=== PATIENT | female | born 1960 | race Caucasian/White ===

== ENCOUNTER 2017-04-25 08:05 | Emergency (ER) | payer OTHER ==
[~2017-04-25] VITALS: Ht 167.3 cm; Wt 62.1 kg
[~2017-04-25 08:05] MED LIST: CIPRO500 MG PO; CIPROFLOXACIN500 MG PO; MULTI VITAMINS1 TAB PO; PREDNICOT10 MG PO
== END 2017-04-25 11:20 | disposition home or self-care (01) ==
LOC: ED 08:05
DX: S62.644A Nondisplaced fracture of proximal phalanx of right ring finger, initial encounter for closed fracture (principal); Z88.0 Allergy status to penicillin; Z88.2 Allergy status to sulfonamides; W22.8XXA Striking against or struck by other objects, initial encounter; Y93.89 Activity, other specified; Y92.89 Other specified places as the place of occurrence of the external cause; Y99.8 Other external cause status

== ENCOUNTER → 2018-01-16 | Day surgery (SDC) | payer OTHER ==
[~2018-01-16] MED LIST changes: +ASPIRIN CHEWABL81 MG PO; +CAL-MAG TABLET1 EACH PO; +MULTIPLE VITAM1 EAC1 PO; +VITAMIN D-32000 UNI1 PO
--- NOTE | ~2018-01-16 | PROC NOTE ---
[place], [place] PROCEDURE NOTE NAME: SUMIT AMANDA UNIT #: [id number] ROOM: DOCTOR: FRANCESCO QUEZADA MD BIRTHDATE: [birth year] DOS: 01/16/2018 PREOPERATIVE DIAGNOSIS: Screening examination. POSTOPERATIVE DIAGNOSIS: Normal colon. PROCEDURE: Colonoscopy. ENDOSCOPIST: Francesco Quezada MD BARBER SHOP OPERATOR: LEO. ANESTHESIA: MAC. INDICATIONS: This is a 57-year-old lady who is here for a screening examination. The procedure and its complications were explained to the patient in detail preoperatively. Complications that were discussed included, but were not limited to, bleeding, colon perforation, missed lesions and prolonged pain. She agreed to proceed. DESCRIPTION OF PROCEDURE: After identifying the patient, the patient was brought to the endoscopy suite and placed in the left lateral position. After IV sedation was administered, a timeout procedure was called and a digital rectal exam was performed. This was within normal limits. An adult colonoscope was now introduced into the anal canal and advanced sequentially into the rectum, sigmoid colon, descending colon, transverse colon, ascending colon up to the cecum. Upon reaching the cecum, the scope was withdrawn. Total withdrawal time was approximately 7 minutes. There were no obvious lesions seen in the entirety of the colon. Upon removal of the colonoscope, the patient was brought back to the recovery room in stable fashion. There were no complications. Dr. Francesco Quezada, the attending endoscopist, was present throughout the operating case. Based on these findings, the patient is recommended to have another colonoscopy in 10 years or sooner if she develops any new symptoms. These findings were discussed with the patient's in the recovery room. Francesco Quezada MD CM:PROCNOTE:PROCEDURE NOTE [id number] FRANCESCO QUEZADA MD
[2018-01-16 09:05] VITALS: BP 91/55
[2018-01-16 09:53] VITALS: BP 104/65
[2018-01-16 10:08] VITALS: BP 101/66
[2018-01-16 10:23] VITALS: BP 109/69
== END | disposition home or self-care (01) ==
LOC: SDC 01-06 10:15
DX: Z12.11 Encounter for screening for malignant neoplasm of colon (principal); Z98.890 Other specified postprocedural states; Z98.51 Tubal ligation status; Z88.0 Allergy status to penicillin; Z88.2 Allergy status to sulfonamides; Z87.891 Personal history of nicotine dependence; Z82.49 Family history of ischemic heart disease and other diseases of the circulatory system; Z83.3 Family history of diabetes mellitus

== ENCOUNTER → 2018-01-24 | Outpatient (CLI) | payer OTHER | END | disposition home or self-care (01) | LOC: US 10:00 | DX: R74.8 Abnormal levels of other serum enzymes (principal) ==

== ENCOUNTER → 2020-04-04 | Outpatient (CLI) | payer OTHER | END | disposition home or self-care (01) | LOC: COVID19 10:44 | PROVIDERS: ATTEND Internal Medicine | DX: Z20.828 Contact with and (suspected) exposure to other viral communicable diseases (principal) ==

== ENCOUNTER → 2023-09-17 | Outpatient (CLI) | payer OTHER ==
[2023-09-17 14:37] LABS: BASO # 0.1 10*3/uL (0.0-0.1); BASO % 0.8 % (0.0-1.0); EOS # 0.1 10*3/uL (0.0-0.4); EOS % 1.3 % (1.0-4.0); LYMPH # 1.9 10*3/uL (1.3-4.4); LYMPH % 23.9 % (27.0-41.0); MEAN CELL VOLUME 90.5 fl (81.0-99.0); MEAN CORPUSCULAR HGB 29.3 pg (27.0-31.0); MEAN CORPUSCULAR HGB CONC 32.4 g/dl (33.0-37.0); MEAN PLATELET VOLUME 10.6 fl (9.6-12.3); MONO # 0.6 10*3/uL (0.1-1.0); MONO % 6.9 % (3.0-9.0); NEUT # 5.4 10*3/uL (2.3-7.9); PLATELET COUNT AUTOMATED 342 10*3/uL (130-400); RED CELL DISTRI WIDTH 12.6 % (0-14.5)
[2023-09-17 14:52] LABS: ALKALINE PHOSPHATASE 83 U/L (46-116); BUN 17 mg/dl (9-23); CHLORIDE 105 mmol/L (98-107); CHOLESTEROL 271 mg/dL (<200); GAMMA GLUTAMYL TRANSPEPTIDASE 31 U/L (0-73); LDL CHOLESTEROL 176 mg/dL (9-159); POTASSIUM 3.8 mmol/L (3.4-5.1); SGPT/ALT 18 U/L (5-49); TOTAL PROTEIN 7.4 gm/dL (6.0-8.0); TRIGLYCERIDES 164 mg/dl (<150)
== END | disposition home or self-care (01) ==
LOC: RAD 10:46
PROVIDERS: ATTEND Nurse Practitioner Primary Care
DX: M19.012 Primary osteoarthritis, left shoulder (principal); M19.011 Primary osteoarthritis, right shoulder; R74.8 Abnormal levels of other serum enzymes; J18.9 Pneumonia, unspecified organism; E55.9 Vitamin D deficiency, unspecified

== ENCOUNTER → 2024-08-26 | Outpatient (CLI) | payer OTHER | END | disposition home or self-care (01) | LOC: MAMMO 10:30 | PROVIDERS: ATTEND Nurse Practitioner Primary Care | DX: Z12.31 Encounter for screening mammogram for malignant neoplasm of breast (principal) ==

== ENCOUNTER → 2024-09-20 | Outpatient (CLI) | payer OTHER | END | disposition home or self-care (01) | LOC: US 00:46 | PROVIDERS: ATTEND Nurse Practitioner Primary Care | DX: I65.23 Occlusion and stenosis of bilateral carotid arteries (principal); R09.89 Other specified symptoms and signs involving the circulatory and respiratory systems ==